=== PATIENT | male | born 1945 | race Caucasian/White ===

== ENCOUNTER 2023-12-03 14:52 | Outpatient (CLI) | payer MEDICARE, SELFPAY ==
--- NOTE | ~2023-12-03 | CT_ITS ---
EXAMINATION: CT abdomen pelvis w con DATE: 12/03/2023 15:34 INDICATION: Left lower quadrant abdominal pain, tenderness TECHNIQUE: Computed tomography (CT) of the abdomen and pelvis was performed with 100 CC Omnipaque 350 intravenous contrast. Automated exposure control and iterative reconstruction technique were employe d. Exam dose: 524.90 mGy-cm total exam DLP. COMPARISON: None. FINDINGS: Emphysematous changes of the lungs are noted. No infiltrate or consolidation is noted in th e included lower lung zones. Left lower lobe calcified pulmonary granuloma. Normal heart size. No pericardial or pleural effusion. Very small sliding hiatal hernia. There are scattered hepatic cysts, the largest measuring up to approximately 2.3 cm at the caudate pr ocess. Approximately 4 mm gallstone in the dependent aspect of the gallbladder. No gallbladder wall thickeni ng or pericholecystic fluid or fat stranding. No bile duct or pancreatic duct dilatation. There is a 2.9 mm calcification within the pancreatic head which may be due to mild chronic pancreatitis. Normal splenic size. Normal morphology of the adrenal glands. There are multiple bilateral renal cysts, the largest measuring up to 4.8 cm on the right. Prominent bilateral renal artery calcifications, including particularly prominent calcifications at t he origins of the renal arteries, especially on the right. There is prominent calcification at the ce liac and superior mesenteric and inferior mesenteric arteries. Up to approximately 3.5 cm infrarenal abdominal aortic aneurysmal change. There is very prominent jamal cification of the common iliac arteries which measure up to approximately 1.5 cm diameter prominent c alcification of the external iliac and femoral arteries. Left femoral artery bypass graft. No intraperitoneal or retroperitoneal or pelvic mass lesion or adenopathy or ascites. There is moderate prostate enlargement and prominent prostate calcification. The urinary bladder appe ars unremarkable. There is thickening of the sigmoid colon with pericolic fat stranding, in addition to numerous divert icula sigmoid colon. Acute sigmoid diverticulitis is suggested. No abscess is identified. No bowel obstruction. Normal appendix. No intraperitoneal free air is detected. Small fat-containing umbilical hernia. Diffuse idiopathic skeletal hyperostosis of the thoracolumbar spine. There is prominent degenerative change at the apophyseal joints of the lumbar area with associated grade 1 anterolisthesis at L4-5. Mild to moderate bilateral hip osteoarthritis. IMPRESSION: Acute sigmoid diverticulitis is suggested, without apparent abscess Emphysema Very small sliding hiatal hernia Normal appendix Multiple hepatic and renal cysts Cholelithiasis Up to 3.5 cm infrarenal abdominal aortic aneurysm Left femoral artery bypass graft Reviewed, dictated and finalized at [facility]. Reviewed, dictated and finalized at [facility]. [facility] IMPRESSION: Acute sigmoid diverticulitis is suggested, without apparent absces s Emphysema Very small sliding hiatal hernia Normal appendix Multiple hepatic and renal cysts Cholelithiasis Up to 3.5 cm infrarenal abdominal aortic aneurysm Left femoral artery bypass graft
[2023-12-03 15:29] LABS: Estimated Glomerular Filt Rate 49
== END 2023-12-03 14:53 | disposition home or self-care (01) ==
PROVIDERS: PCP Family Medicine; Visit Provider Nurse Practitioner Family
DX: K44.9 Diaphragmatic hernia without obstruction or gangrene (principal); N28.1 Cyst of kidney, acquired; K80.20 Calculus of gallbladder without cholecystitis without obstruction; I71.43 Infrarenal abdominal aortic aneurysm, without rupture; R19.7 Diarrhea, unspecified; J43.9 Emphysema, unspecified; Z95.1 Presence of aortocoronary bypass graft
CPT/HCPCS: 74177; Q9967